=== PATIENT | female | born 1950 | race Caucasian/White ===

== ENCOUNTER 2021-12-14 09:32 | Day surgery (SDC) | payer MEDICARE ==
[~2021-12-14] VITALS: Ht 152.4 cm; Wt 59.6 kg
[2021-12-14] MEDS ORDERED: LOSA50 (09:48)
[2021-12-14] MEDS ORDERED: CALCIUM CIT 311 EAC7 (09:48)
[2021-12-14] MEDS ORDERED: OMEP20ER (09:48)
[2021-12-14] MEDS ORDERED: ALEN70 (09:48)
[2021-12-14] MEDS ORDERED: THERA-D2000 UNIT (09:48)
[2021-12-14] MEDS ORDERED: ASPI81CH (09:49)
[2021-12-14] MEDS ORDERED: MULVITA (09:49)
[2021-12-14] MEDS ORDERED: PROBIOTIC1 EA13 (09:49)
== END 2021-12-14 11:43 | disposition home or self-care (01) ==
LOC: ORSCSDS 09:32
PROVIDERS: Internal Medicine Gastroenterology
PROC: 0D757ZZ Dilation of Esophagus, Via Natural or Artificial Opening (ICD-10-PCS; 2021-12-14)
PROC: 0DB98ZX Excision of Duodenum, Via Natural or Artificial Opening Endoscopic, Diagnostic (ICD-10-PCS; principal; 2021-12-14 10:45)
PROC: 0DB68ZX Excision of Stomach, Via Natural or Artificial Opening Endoscopic, Diagnostic (ICD-10-PCS; principal; 2021-12-14 10:45)
PROC: 0DB58ZX Excision of Esophagus, Via Natural or Artificial Opening Endoscopic, Diagnostic (ICD-10-PCS; principal; 2021-12-14 10:45)
DX: R13.10 Dysphagia, unspecified (principal); R63.4 Abnormal weight loss; K29.70 Gastritis, unspecified, without bleeding; I10 Essential (primary) hypertension; Z79.899 Other long term (current) drug therapy
CPT/HCPCS: 88305; 88342; J2704; J7120

== ENCOUNTER 2022-12-13 07:39 | Day surgery (SDC) | payer MEDICARE ==
[~2022-12-13] VITALS: Ht 154.9 cm; Wt 50.8 kg
[~2022-12-13 07:39] MED LIST: ALEN70; ASPI81CH; CALCIUM CIT 311 EAC7; LOSA50; MULVITA; OMEP20ER; PROBIOTIC1 EA13; THERA-D2000 UNIT
[2022-12-13] MEDS ORDERED: ATOR40TA PO (08:12)
[2022-12-13] MEDS ORDERED: PILO5 PO (08:12)
[2022-12-13] MEDS ORDERED: HYDCHL12.5 PO (08:13)
--- NOTE | 2022-12-13 08:18 | NUR ---
12/13/22 0818 Levar Woo CALL LIGHT WITHIN REACH. FAMILY AT BEDSIDE
[2022-12-13 09:34] VITALS: BP 120/67
== END 2022-12-13 09:49 | disposition home or self-care (01) ==
LOC: ORSCSDS 07:39
PROVIDERS: Surgery
PROC: 0DJD8ZZ Inspection of Lower Intestinal Tract, Via Natural or Artificial Opening Endoscopic (ICD-10-PCS; principal; 2022-12-13 08:45)
DX: R63.4 Abnormal weight loss (principal); M35.00 Sjogren syndrome, unspecified; K57.30 Diverticulosis of large intestine without perforation or abscess without bleeding; R13.10 Dysphagia, unspecified; I10 Essential (primary) hypertension; Z79.82 Long term (current) use of aspirin; Z79.899 Other long term (current) drug therapy
CPT/HCPCS: J2704; J7040; J7120

== ENCOUNTER → 2023-11-15 | Outpatient (CLI) | payer OTHER ==
[~2023-11-15] MED LIST changes: +ATOR40TA PO; +HYDCHL12.5 PO; +PILO5 PO
[2023-11-15 15:50] LABS: BASOPHILS ABSOLUTE AUTO 0.02 K/mm3 (0.00-0.23); BASOPHILS PERCENT AUTO 1 % (0-2); EOSINOPHILS ABSOLUTE AUTO 0.12 K/mm3 (0.00-0.68); EOSINOPHILS PERCENT AUTO 3 % (0-6); Hematocrit 30.6 % (33.0-51.0); Hemoglobin 10.8 g/dL (11.5-16.0); IMMATURE GRAN ABSOLUTE AUTO 0.01 K/mm3 (0.00-0.10); IMMATURE GRAN PERCENT AUTO 0 % (0-1); LYMPHOCYTES ABSOLUTE AUTO 1.03 K/mm3 (0.84-5.20); LYMPHOCYTES PERCENT AUTO 26 % (21-46); MONOCYTES ABSOLUTE AUTO 0.36 K/mm3 (0.16-1.47); MONOCYTES PERCENT AUTO 9 % (4-13); Mean Corpuscular HGB 32.6 pg (26.0-34.0); Mean Corpuscular HGB Conc 35.3 g/dL (31.5-36.5); Mean Corpuscular Volume 92 fL (80-100); Mean Platelet Volume 9.7 fL (9.1-12.4); NEUTROPHILS ABSOLUTE AUTO 2.39 K/mm3 (1.96-9.15); NEUTROPHILS PERCENT AUTO 61 % (41-73); Platelet Count 171 K/mm3 (150-400); RDW Coefficient Variation 13.4 % (11.7-14.2); RDW Standard Deviation 45.5 fL (35.1-46.3); Red Blood Cell Count 3.31 M/mm3 (3.80-5.20); White Blood Cell Count 3.93 K/mm3 (4.00-11.30)
[2023-11-15 16:01] LABS: Albumin, Blood 3.5 g/dL (3.4-5.0); Albumin/Globulin Ratio 0.6 (0.8-1.8); Bilirubin, Total 0.5 mg/dL (0.1-1.0); Bun/Creatinine Ratio 15.9 (12.0-20.0); Calcium, Blood 9.4 mg/dL (8.5-10.1); Creatinine, Blood 1.07 mg/dL (0.40-1.00); Globulin, Blood 5.5 g/dL (2.2-4.0); Potassium, Blood 3.8 mmol/L (3.5-5.5)
== END ==
LOC: LAB 15:44 → LAB SHORT 15:44
PROVIDERS: Physician Assistant
DX: R59.1 Generalized enlarged lymph nodes (principal)
CPT/HCPCS: 80053; 85025

== ENCOUNTER → 2024-03-26 | Outpatient (CLI) | payer OTHER ==
[2024-03-26 17:53] LABS: BASOPHILS ABSOLUTE AUTO 0.03 K/mm3 (0.00-0.23); BASOPHILS PERCENT AUTO 1 % (0-2); EOSINOPHILS ABSOLUTE AUTO 0.18 K/mm3 (0.00-0.68); EOSINOPHILS PERCENT AUTO 4 % (0-6); Hematocrit 33.4 % (33.0-51.0); Hemoglobin 11.4 g/dL (11.5-16.0); IMMATURE GRAN ABSOLUTE AUTO 0.01 K/mm3 (0.00-0.10); IMMATURE GRAN PERCENT AUTO 0 % (0-1); LYMPHOCYTES ABSOLUTE AUTO 0.93 K/mm3 (0.84-5.20); LYMPHOCYTES PERCENT AUTO 21 % (21-46); MONOCYTES ABSOLUTE AUTO 0.37 K/mm3 (0.16-1.47); MONOCYTES PERCENT AUTO 8 % (4-13); Mean Corpuscular HGB 33.9 pg (26.0-34.0); Mean Corpuscular HGB Conc 34.1 g/dL (31.5-36.5); Mean Corpuscular Volume 99 fL (80-100); Mean Platelet Volume 8.7 fL (9.1-12.4); NEUTROPHILS ABSOLUTE AUTO 2.99 K/mm3 (1.96-9.15); NEUTROPHILS PERCENT AUTO 66 % (41-73); Platelet Count 246 K/mm3 (150-400); RDW Coefficient Variation 13.4 % (11.7-14.2); RDW Standard Deviation 49.3 fL (35.1-46.3); Red Blood Cell Count 3.36 M/mm3 (3.80-5.20); White Blood Cell Count 4.51 K/mm3 (4.00-11.30)
== END ==
LOC: LAB SHORT 12:15 → LAB 12:15
PROVIDERS: Internal Medicine Hematology & Oncology
DX: D89.2 Hypergammaglobulinemia, unspecified (principal)
CPT/HCPCS: 85025

== ENCOUNTER → 2024-04-17 | Outpatient (CLI) | payer OTHER ==
[2024-04-17 14:33] LABS: BASOPHILS ABSOLUTE AUTO 0.03 K/mm3 (0.00-0.23); BASOPHILS PERCENT AUTO 1 % (0-2); EOSINOPHILS ABSOLUTE AUTO 0.12 K/mm3 (0.00-0.68); EOSINOPHILS PERCENT AUTO 4 % (0-6); Hematocrit 34.1 % (33.0-51.0); Hemoglobin 11.7 g/dL (11.5-16.0); IMMATURE GRAN PERCENT AUTO 0 % (0-1); LYMPHOCYTES ABSOLUTE AUTO 0.84 K/mm3 (0.84-5.20); LYMPHOCYTES PERCENT AUTO 24 % (21-46); MONOCYTES PERCENT AUTO 9 % (4-13); Mean Corpuscular HGB 33.6 pg (26.0-34.0); Mean Corpuscular HGB Conc 34.3 g/dL (31.5-36.5); Mean Corpuscular Volume 98 fL (80-100); Mean Platelet Volume 8.8 fL (9.1-12.4); NEUTROPHILS ABSOLUTE AUTO 2.17 K/mm3 (1.96-9.15); NEUTROPHILS PERCENT AUTO 63 % (41-73); Platelet Count 239 K/mm3 (150-400); RDW Coefficient Variation 12.1 % (11.7-14.2); RDW Standard Deviation 44.2 fL (35.1-46.3); Red Blood Cell Count 3.48 M/mm3 (3.80-5.20); White Blood Cell Count 3.46 K/mm3 (4.00-11.30)
[2024-04-17 14:55] LABS: Albumin, Blood 3.7 g/dL (3.4-5.0); Albumin/Globulin Ratio 0.7 (0.8-1.8); Bilirubin, Total 0.5 mg/dL (0.1-1.0); Bun/Creatinine Ratio 31.2 (12.0-20.0); Calcium, Blood 9.7 mg/dL (8.5-10.1); Creatinine, Blood 0.77 mg/dL (0.40-1.00); Globulin, Blood 5.4 g/dL (2.2-4.0); Potassium, Blood 3.8 mmol/L (3.5-5.5); Thyroid Stimulating Hormone 1.31 uIU/mL (0.360-4.800); Total Protein, Blood 9.1 g/dL (6.4-8.2)
== END ==
LOC: LAB SHORT 12:52 → LAB 12:52
PROVIDERS: Internal Medicine Rheumatology
DX: M35.00 Sjogren syndrome, unspecified (principal)
CPT/HCPCS: 80053; 84443; 85025; 85651

== ENCOUNTER 2024-06-20 06:22 | Day surgery (SDC) | payer OTHER ==
[~2024-06-20] VITALS: Ht 154.9 cm; Wt 52.3 kg
[~2024-06-20 06:22] MED LIST changes: +Balanced Salt Epinephrine Irrigation Solution 500 mL IR SCH; +Diazepam 5 MG Tab PO PRN; +Diazepam 5 MG Tab PO SCH; +Lidocaine HCl/Pf 1% 5 ML VIAL XX SCH; +Moxifloxacin HCL 0.5 MG/0.1 ML 0.4MLSYR RIGHTEYE SCH; +PHENYLEPHRINE\\TROPICAMIDE\\TETRACAINE OPHTHALMIC DILATING SOLN RIGHTEYE PRN; +Povidone-Iodine 450 DROP/30 ML Solution ONE; +Povidone-Iodine 450 DROP/30 ML Solution RIGHTEYE SCH; +Tetracaine HCl/Pf 0.5% Opth Soln 4 ml ONE; +Triamcinolone Inj Susp 40 MG / ML 1ML Vial INJ SCH
[2024-06-20] MEDS ORDERED: Diazepam 10 MG Tab ONE (06:26)
[2024-06-20] MEDS ORDERED: Lidocaine HCl/Pf 1% 5 ML VIAL ONE (06:40)
[2024-06-20] MEDS ORDERED: Triamcinolone Inj Susp 40 MG / ML 1ML Vial ONE (06:40)
[2024-06-20] MEDS ORDERED: CALCIUM CIT 311 EAC7 PO (06:49)
--- NOTE | 2024-06-20 07:39 | NUR ---
06/20/24 0739 Em Humphrey BP-125/62 P-67 SPO2-97% 10L BLOW BY O2
[2024-06-20 07:55] VITALS: BP 126/62
--- NOTE | 2024-06-20 08:00 | NUR ---
06/20/24 0800 Melisa Peraza BROUGHT BACK TO BEDSIDE
== END 2024-06-20 08:15 | disposition home or self-care (01) ==
LOC: ORSCSDS 06:22
PROVIDERS: Ophthalmology
PROC: 08RJ3JZ Replacement of Right Lens with Synthetic Substitute, Percutaneous Approach (ICD-10-PCS; principal; 2024-06-20 07:30)
DX: H25.813 Combined forms of age-related cataract, bilateral (principal); I10 Essential (primary) hypertension; M35.00 Sjogren syndrome, unspecified; Z79.82 Long term (current) use of aspirin; Z79.899 Other long term (current) drug therapy
CPT/HCPCS: A9270; J2003; J3301; V2632

== ENCOUNTER 2024-06-27 06:10 | Day surgery (SDC) | payer OTHER ==
[~2024-06-27] VITALS: Ht 154.9 cm; Wt 52.5 kg
[~2024-06-27 06:10] MED LIST changes: +CALCIUM CIT 311 EAC7 PO; +Moxifloxacin HCL 0.5 MG/0.1 ML 0.4MLSYR LEFTEYE SCH; -Moxifloxacin HCL 0.5 MG/0.1 ML 0.4MLSYR RIGHTEYE SCH; +Ondansetron 4 MG SoluTab MM PRN; +PHENYLEPHRINE\\TROPICAMIDE\\TETRACAINE OPHTHALMIC DILATING SOLN LEFTEYE PRN; -PHENYLEPHRINE\\TROPICAMIDE\\TETRACAINE OPHTHALMIC DILATING SOLN RIGHTEYE PRN; +Povidone-Iodine 450 DROP/30 ML Solution LEFTEYE SCH; -Povidone-Iodine 450 DROP/30 ML Solution RIGHTEYE SCH; -Tetracaine HCl/Pf 0.5% Opth Soln 4 ml ONE
[2024-06-27] MEDS ORDERED: Tetracaine HCl/Pf 0.5% Opth Soln 4 ml ONE (06:11)
[2024-06-27] MEDS ORDERED: Diazepam 10 MG Tab ONE (06:22)
--- NOTE | 2024-06-27 06:34 | NUR ---
06/27/24 0634 Stromy Donald PT RATES ANXIETY 04/08 AT THIS TIME.
[2024-06-27] MEDS ORDERED: Triamcinolone Inj Susp 40 MG / ML 1ML Vial ONE (06:43)
[2024-06-27] MEDS ORDERED: Lidocaine HCl/Pf 1% 5 ML VIAL ONE (06:44)
--- NOTE | 2024-06-27 07:38 | NUR ---
06/27/24 0738 Valeri Avila BP 141/68, HR 62, O2 100% WITH BLOW BY AT 10L.
[2024-06-27 08:02] VITALS: BP 128/57
--- NOTE | 2024-06-27 08:05 | NUR ---
06/27/24 0805 Melisa Peraza BROUGHT TO BEDSIDE
== END 2024-06-27 08:15 | disposition home or self-care (01) ==
LOC: ORSCSDS 06:10
PROVIDERS: Ophthalmology
PROC: 08RK3JZ Replacement of Left Lens with Synthetic Substitute, Percutaneous Approach (ICD-10-PCS; principal; 2024-06-27 07:30)
DX: H25.812 Combined forms of age-related cataract, left eye (principal); H52.202 Unspecified astigmatism, left eye; Z96.1 Presence of intraocular lens; H04.123 Dry eye syndrome of bilateral lacrimal glands; I10 Essential (primary) hypertension; M35.00 Sjogren syndrome, unspecified; Z79.82 Long term (current) use of aspirin; Z79.899 Other long term (current) drug therapy
CPT/HCPCS: A9270; J2003; J3301; V2632